=== PATIENT | male | born 1945 | race Caucasian/White ===

== ENCOUNTER 2023-02-25 08:03 | Day surgery (SDC) | payer MEDICARE ==
[2023-02-25] MEDS ORDERED: Ondansetron PF 4 MG/2 ML Vial ONE ×6 (08:35→19:52)
[2023-02-25 08:45] LABS: #Eosinphils 0.1 thou/uL (0.0-0.7); #Monocytes 0.5 thou/uL (0.11-0.59); #Neutrophils 5.5 thou/uL (1.40-6.50); %Basophils 0.4 % (0.0-1.0); %Eosinophils 1.4 % (0.0-10.0); %Lymphocytes 16.5 % (21.0-51.0); %Monocytes 6.3 % (0.0-10.0); %Neutrophils 75.3 % (42.0-75.0); Hematocrit 46.3 % (42.0-52.0); Hemoglobin 15.1 g/dL (14.0-18.0); Mean Corpuscular HGB CONC 32.6 g/dL (32.0-36.0); Mean Corpuscular Hemoglobin 31.1 pg (27.0-31.0); Mean Corpuscular Volume 95.5 fl (78.0-98.0); Mean Platelet Volume 10.8 fL (7.4-10.4); Platelet Count 173 10x3/uL (130-400); RBC Distribution Width 14.1 % (11.5-14.5); Red Blood Cell (RBC) Count 4.85 mill/uL (4.70-6.10); White Blood Cell (WBC) Count 7.3 10x3/uL (4.8-10.8)
[2023-02-25 08:51] LABS: Bacteria/HPF None Seen HPF (None Seen); Bilirubin Negative (Negative); Blood, Urine Negative (Negative); CAUTI Indications for Culture Dysuria,urgency,freq; Clarity Turbid (Clear); Glucose, Urine (Dipstick) Normal (Negative); Ketone, Urine Negative (Negative); Leukocyte Negative Leu/uL (Negative); Nitrite Negative (Negative); Protein, Urine (Dipstick) 20 mg/dL (Neg-Trace); RBC/HPF 0-3 HPF (0-3); Specific Gravity, Urine 1.019 (1.002-1.036); Squamous Epithelial None Seen HPF (0-3); Urobilinogen Normal mg/dL (Less than 2); WBC/HPF 0-3 HPF (0-3); pH, Urine 7.5 (5.0-9.0)
[2023-02-25 08:54] LABS: Urine Culture Reflex No No
[2023-02-25 09:06] LABS: ALT (SGPT) 19 U/L (8-55); AST (SGOT) 33 U/L (5-34); Albumin 4.2 g/dL (3.4-4.8); Alkaline Phosphatase 89 U/L (40-110); Anion Gap 15 mmol/L (10-20); BUN (Urea Nitrogen) 26 mg/dL (8.4-25.7); Bilirubin, Total 0.8 mg/dL (0.2-1.2); Calc. Creatinine Clearance 0 mL/min (70-130); Calcium 9.4 mg/dL (7.8-10.44); Carbon Dioxide 24 mmol/L (23-31); Chloride 106 mmol/L (98-107); Estimated GFR 78; Glucose 119 mg/dL (83-110); Lipase 17 U/L (8-78); Potassium 4.2 mmol/L (3.5-5.1); Protein, Total 7.2 g/dL (5.8-8.1); Sodium 141 mmol/L (136-145)
[2023-02-25 09:09] LABS: Troponin I 0.026 ng/mL (< 0.028)
[2023-02-25] MEDS ORDERED: Iopamidol-370 76% 500 ML MDV (1 ML CHARGE) ONE (10:28)
[2023-02-25] MEDS ORDERED: Morphine 4 MG/ML VIAL ONE (12:25)
[2023-02-25] MEDS ORDERED: Piperacillin/Tazobactam 3.375 GM VIAL ONE (12:25)
[2023-02-25] MEDS ORDERED: Sodium Chloride 0.9% 100 ML ONE (12:25)
[2023-02-25] MEDS ORDERED: Succinylcholine 200 MG/10 ml SYRINGE FS ONE ×2 (13:10→13:59)
[2023-02-25] MEDS ORDERED: EPINEPHrine 1 MG/ML VIAL ONE (13:10)
[2023-02-25] MEDS ORDERED: PROPOFOL 20 ML ONE (13:10)
[2023-02-25] MEDS ORDERED: Lidocaine 1% PF 5 ML VIAL ONE ×2 (13:10→13:59)
[2023-02-25] MEDS ORDERED: Bupivacaine PF 0.5% 30 ML VIAL ONE (13:10)
[2023-02-25] MEDS ORDERED: Rocuronium Bromide 10 MG/ML (10ML VIAL) ONE ×2 (13:11→13:59)
[2023-02-25] MEDS ORDERED: fentaNYL PF 100 MCG/2 ML SYRINGE ONE (13:15)
[2023-02-25] MEDS ORDERED: Famotidine/PF 20 mg/2ml Vial ONE ×2 (13:52→19:52)
[2023-02-25] MEDS ORDERED: ePHEDrine Sulfate 50 MG/10 ML VIAL ONE ×2 (13:58→13:59)
[2023-02-25] MEDS ORDERED: Ketorolac Tromethamine 30 MG/ML VIAL ONE ×2 (13:59→14:13)
[2023-02-25] MEDS ORDERED: NEOSTIGMINE 3 MG/3 ML SYR 3 MG/3 ML SYRINGE ONE ×2 (13:59→14:27)
[2023-02-25] MEDS ORDERED: PROPOFOL 200 MG/20 ML VIAL ONE (13:59)
[2023-02-25] MEDS ORDERED: Glycopyrrolate 0.2 MG/ML 5 ML SYRINGE ONE ×2 (13:59→14:27)
[2023-02-25] MEDS ORDERED: Dexamethasone 20 MG/5 ML VIAL ONE ×2 (13:59→14:13)
[2023-02-25] MEDS ORDERED: fentaNYL 50 mcg/mL 1 mL Vial ONE ×3 (15:02→15:24)
[2023-02-25] MEDS ORDERED: HYDROcodone/Acetaminophen 5/325 mg Tablet ONE (19:44)
== END 2023-02-25 20:33 | disposition home or self-care (01) ==
LOC: ERS 08:03 → SDC/OP 15:43
PROVIDERS: ATTEND Student in an Organized Health Care Education/Training Program
PROC: 0FT44ZZ Resection of Gallbladder, Percutaneous Endoscopic Approach (ICD-10-PCS; principal; 2023-02-25)
DX: K80.12 Calculus of gallbladder with acute and chronic cholecystitis without obstruction (principal); I48.91 Unspecified atrial fibrillation; Z79.82 Long term (current) use of aspirin; Z95.818 Presence of other cardiac implants and grafts
CPT/HCPCS: 47562; 71045; 74177; 76705; 80053; 81001; 82962; 83605; 83690; 84484; 85025; 93005; C1889; J0171; J3010; 36415; 36416; 88304; 96361; 96365; 96375; 96376; J1100; J1885; J2270; J2405; J2543; J2704; J3490; Q9967; S0020; S0028